=== PATIENT | female | born 1955 | race Hispanic/Latino ===

== ENCOUNTER 2017-05-16 20:06 | Emergency (ER) | payer OTHER ==
[2017-05-16 21:17] LABS: BASO % 0.2 % (0.0-2.0); HEMOGLOBIN 12.7 g/dL (12.0-16.0); LYMPH # 0.7 K/uL (1.0-4.3); LYMPH % 6.2 % (20.0-40.0); MEAN CELL VOLUME 93.4 fl (81.0-99.0); MEAN CORPUSCULAR HEMOGLOBIN 30.6 pg (27.0-31.0); MEAN CORPUSCULAR HGB CONC 32.8 g/dL (33.0-37.0); MEAN PLATELET VOLUME 9.3 fl (7.2-11.7); MONO # 0.5 K/uL (0.0-0.8); MONO % 4.6 % (0.0-10.0); NEUT # 10.3 K/uL (1.8-7.0); PLATELET COUNT 105 K/uL (130-400); RBC 4.15 Mil/uL (3.80-5.20); RED CELL DISTRIBUTION WIDTH 13.4 % (11.5-14.5); WHITE BLOOD COUNT 11.5 K/uL (4.8-10.8)
[2017-05-16 21:22] LABS: VENOUS BLOOD GAS PCO2 38 mmHg (40-60); VENOUS BLOOD GAS PO2 35 mm/Hg (30-55); VENOUS BLOOD PH 7.43 (7.32-7.43)
--- NOTE | 2017-05-16 21:30 | ED PDOC ---
HPI: CCC, URI, Sore Throat Time Seen by Provider: 05/16/17 20:26 Chief Complaint (Nursing): Dizziness/Lightheaded Chief Complaint (Provider): Lethargy History Per: Patient History/Exam Limitations: no limitations Have you had recent travel within the past 21 days to any of the following countries: [place], [place], [place] or [place]?: No Onset/Duration Of Symptoms: Days (2) Current Symptoms Are (Timing): Better Location Of Pain: Ear(s) (L), Other (L arm) Associated Symptoms: Fever, Cough, Sputum (yellow), Nasal Congestion, Nausea, Vomiting, Diarrhea Ear Symptoms: Left: Ear Pain, Ear Fullness Severity: Mild Additional Complaint(s): 61 yo F with pmhx of L Rotator cuff tear 2/ to fall presents with generalized weakness. She reported influenza positive one month ago and was on an unknown treatment for 2 weeks. She also reported that on 5 hours after dinner, she experinced bilateral cheek pain (on fire), with Vomiting x3 and diarrhea x 6. Last bowel movement was yesterday and soft. She feels week but able to ambulate slowly. Reports yellow sputum with cough. Her bilateral cheek feeling like on fire has improved since onset. Denies current: CP/SOB/N/V; denies falls ; Denies hx of shingles or receiving vaccine. Unknown if taken tamiflu. PCP: Dr. Murguia in [place] PmHx: L rotator cuff tear 2 to fall Pfamhx: htn, lymphoma Psurg: leiomyomectomy 2006 sochx: Living in [facility]; Denies: smoking, alcohol, illicit drugs Rx: none Allergy: pcn: rash Past Medical History Vital Signs: Last Vital Signs Temp 99.1 F 05/16/17 22:36 Pulse 78 05/16/17 22:36 Resp 16 05/16/17 22:36 BP 109/58 L 05/16/17 22:36 Pulse Ox 97 05/16/17 23:01 - Medical History PMH: No Chronic Diseases Other PMH: L rotator cuff tear 2/ fall - Surgical History Other surgeries: leiomyomectomy 2006 - Family History Family History: States: Hypertension, Other Other Family History: lymphoma - Living Arrangements Living Arrangements: Other ([facility]) - Social History Current smoker - smoking cessation education provided: No Alcohol: None Drugs: Denies - Immunization History Hx Tetanus Toxoid Vaccination: No Hx Influenza Vaccination: No Hx Pneumococcal Vaccination: No - Allergies Allergies/Adverse Reactions: Allergies Allergy/AdvReac Type Severity Reaction Status Date / Time Penicillins Allergy RASH Verified 05/16/17 20:10 Curb-65 Severity Score - CURB-65 Severity Score Confusion: No Respiratory Rate greater than/equal to 30: No Systolic BP <90 or Diastolic BP less than/equal 60mmHg: No Age >64: No Curb-65 Score: 0 Percentage 30-day mortality: 0.6% Review of Systems Constitutional: Positive for: Fever, Weakness ENT: Positive for: Ear Pain (L) Cardiovascular: Negative for: Chest Pain Respiratory: Positive for: Cough, Sputum (yellow). Negative for: Shortness of Breath Gastrointestinal: Positive for: Vomiting, Diarrhea Musculoskeletal: Positive for: Arm Pain (L) Skin: Negative for: Rash Neurological: Positive for: Weakness. Negative for: Change in Speech, Confusion , Altered Mental Status Physical Exam - Reviewed Vital Signs Reviewed: Yes (Febrile) - Physical Exam Appears: Positive for: Non-toxic, No Acute Distress Skin: Positive for: Normal Color, Warm, Dry Eye Exam: Positive for: Normal appearance, EOMI Neck: Positive for: Trachea Midline Cardiovascular/Chest: Positive for: Regular Rate, Rhythm, Chest Non Tender. Negative for: Murmur, Bradycardia, Tachycardia Respiratory: Negative for: Accessory Muscle Use, Crackles, Rales, Rhonchi, Wheezing Gastrointestinal/Abdominal: Positive for: Normal Exam, Bowel Sounds, Soft. Negative for: Tenderness Extremity: Negative for: Calf Tenderness Neurologic/Psych: Positive for: Alert, smoke jumper II-XII, Oriented, Mood/Affect. Negative for: Facial Droop - Laboratory Results Result Diagrams: 05/16/17 21:12 05/16/17 21:12 - ECG O2 Sat by Pulse Oximetry: 97 - Radiology X-Ray: Viewed By Me - Progress ED Course And Treament: CXR: revealed L lower lobe opacity/consolidtion. likely CAP. Started on Levaquin 750 mg po q Daily x 7 days. DC home for 6 additional days pt to f/u with her PCP Dr. Murguia Condition: Improving,but remains with symptoms Disposition - Clinical Impression Clinical Impression: Cough in adult - Disposition Disposition: Routine/Home (with 6 days of Levaquin 750 mg PO. will f/u with pcp) Disposition Time: 23:00 Condition: STABLE Instructions: Cough in Adults Forms: [facility] ([place])
[2017-05-16 21:34] LABS: ALB/GLOB RATIO 1.2 (1.0-2.1); ALBUMIN 3.7 g/dL (3.5-5.0); ALT/SGPT 28 U/L (9-52); AST/SGOT 30 U/L (14-36); BLOOD UREA NITROGEN 10 mg/dl (7-17); CALCIUM 9.2 mg/dL (8.4-10.2); GFR AFRICAN-AMERICAN > 60; GFR NON-AFRICAN AMERICAN > 60
[2017-05-16 22:17] LABS: SQUAMOUS EPITHIAL < 1 /hpf (0-5); URINE BACTERIA RARE (<OCC); URINE BILIRUBIN NEGATIVE (NEGATIVE); URINE BLOOD SMALL (NEGATIVE); URINE CLARITY CLEAR (Clear); URINE COLOR STRAW (YELLOW); URINE GLUCOSE (UA) NEG (Normal); URINE LEUKOCYTE ESTERASE NEG Leu/uL (Negative); URINE PROTEIN NEGATIVE (NEGATIVE); URINE UROBILINOGEN 0.2-1.0 mg/dL (0.2-1.0)
[2017-05-16] MEDS ORDERED: levoFLOXacin 750 MG TAB PO STA (22:52)
[2017-05-16 22:54] LABS: BANDS 3 % (0-2); EOSINOPHIL 1 % (0-7); LYMPHOCYTE 6 % (20-50); MONOCYTE 4 % (0-10); NEUTROPHIL 86 % (42-75); PLATELET ESTIMATE SLIGHTLY DECREASED (NORMAL); TOTAL CELLS COUNTED 100
[2017-05-17 00:28] VITALS: BP 102/60; PULSE 76; RESP 18; TEMP 98.4; O2SAT 99
--- NOTE | 2017-05-17 09:40 | RAD ---
HISTORY: cough COMPARISON: No prior. TECHNIQUE: Chest PA and lateral FINDINGS: LUNGS: Frontal and lateral views of the chest were performed. There is evidence of a left lower lobe infiltrate with associated mild blunting of left costophrenic angle. This may suggest small left effusion. No right lung infiltrates are seen. No CHF is noted. Heart is normal in size. Aorta is not enlarged. The trachea is midline. PLEURA: See above CARDIOVASCULAR: See above OSSEOUS STRUCTURES: No significant abnormalities. VISUALIZED UPPER ABDOMEN: Normal. OTHER FINDINGS: None. IMPRESSION: Left lower lobe pneumonia with possible small adjacent left pleural fluid. No preliminary report has been provided by the emergency room physician. Therefore this case will be placed into the PA review folder utilizing normal department protocol.
== END 2017-05-17 01:15 | disposition home or self-care (01) ==
LOC: H.ER 20:06
DX: J18.1 Lobar pneumonia, unspecified organism (principal); I10 Essential (primary) hypertension; Z88.0 Allergy status to penicillin